=== PATIENT | male | born 1930 | race Caucasian/White ===

== ENCOUNTER 2016-08-06 22:21 | Emergency (ER) | payer MEDICARE, OTHER ==
[~2016-08-06 22:21] MED LIST: ALLO300T PO; ASPI-482 PO; DENO60DI SQ; DUTA0.5C PO; LEVO50TA PO
[2016-08-06 22:44] VITALS: BP 151/63
[2016-08-06 23:29] LABS: INFLUENZA A PATIENT NEGATIVE (NEGATIVE)
[2016-08-06 23:30] LABS: INFLUENZA B PATIENT NEGATIVE (NEGATIVE)
[2016-08-06] MEDS ORDERED: DOXY100T PO (23:42)
--- NOTE | 2016-08-06 23:43 | PHYS DOC ---
General Chief Complaint: SORE THROAT Stated Complaint: DRAINAGE,SORE THROAT,CONGESTION Time Seen by MD: 22:22 Source: patient Exam Limitations: no limitations Problems: History of Present Illness Initial Comments Pt is 86/M to ED c/o sinus problems. Pt states for the past days he's had frontal/maxillary pressure, yellow/green cough/nasal drainage, scratchy throat/hoarseness in morning. No sneeze/watery eyes, no fever/chills. Pt has h/o sinus surgery and sinusitis, thinks he has sinus infection. He is concerned it could progress to pneumonia. No cp/sob/n/v /d. Timing/Duration: 1 week Severity: moderate Modifying Factors: improves with other Associated Symptoms: cough, other Allergies: Coded Allergies: Penicillins (Verified Allergy, Unknown, 12/16/13) Past Medical History Medical History: other (hypothyroid, BPH) Surgical History: other (sinus) Family History Significant Family History: no pertinent family hx Social History Smoker: non-smoker Alcohol: none Drugs: none Review of Systems Constitutional: denies chills, denies diaphoresis, denies fever, denies malaise EENTM: denies ear discharge, denies nose pain, nose congestion throat pain denies throat swelling Respiratory: coughdenies shortness of breath, denies wheezing Cardiovascular: denies chest pain, denies palpitations, denies syncope Gastrointestinal: denies abdominal pain, denies nausea, denies vomiting Musculoskeletal: denies back pain, denies joint swelling, denies neck pain Psychiatric/Neurological: denies headache, denies numbness, denies paresthesia Physical Exam General Appearance: WD/WN, no apparent distress Eyes: bilateral eye EOMI, bilateral eye PERRL, bilateral eye normal inspection Ear, Nose, Throat: hearing grossly normal, other (green nasal/PND) Neck: non-tender, supple Respiratory: normal breath sounds, no respiratory distress Cardiovascular: normal peripheral pulses, regular rate, rhythm Gastrointestinal: non tender, soft Back: no CVA tenderness, no vertebral tenderness Extremities: non-tender, normal inspection Neurologic/Psychiatric: second officer II-XII nml as tested, alert, normal mood/affect, oriented x 3 Skin: normal color, warm/dry Departure Time of Disposition: 23:42 Disposition: 01 HOME, SELF-CARE Diagnosis: acute sinusitis Condition: GOOD Patient Instructions: Sinusitis, Child Additional Instructions: Drink plenty of fluids to avoid dehydration. OTC tylenol, ibuprofen, and analgesic throat sprays as needed. Rx: doxycycline Follow up with your doctor in 10-14 days. Return to ED with new or changing symptoms. RALF HICKS DO Aug 06, 2016 23:43
[2016-08-06] MEDS ORDERED: DOXYCYCLINE HYCLATE 100 MG TABLET ONE (23:45)
[2016-08-06] MEDS ORDERED: ONDANSETRON ODT 4 MG TAB.RAPDIS ONE (23:46)
[2016-08-06] MEDS: ONDANSETRON ODT 4 MG TAB.RAPDIS PO ONE (23:47)
[2016-08-06] MEDS: DOXYCYCLINE HYCLATE 100 MG TABLET PO ONE (23:47)
== END 2016-08-06 23:55 | disposition home or self-care (01) ==
LOC: ER 22:21
DX: J01.90 Acute sinusitis, unspecified (principal); E03.9 Hypothyroidism, unspecified; N40.0 Benign prostatic hyperplasia without lower urinary tract symptoms; Z88.0 Allergy status to penicillin
CPT/HCPCS: 87070; 87804; 87880; 99284; Q0162

== ENCOUNTER 2017-05-08 12:26 | Emergency (ER) | payer MEDICARE, OTHER ==
[~2017-05-08] VITALS: Ht 172.7 cm; Wt 71.7 kg
[~2017-05-08 12:26] MED LIST changes: +DOXY100T PO
--- NOTE | 2017-05-08 13:10 | PHYS DOC ---
Past History Past Medical History: Hypothyroid, Other Past Surgical History: Other Smoking: Non-smoker Alcohol Use: None Drug Use: None Adult General Chief Complaint Chief Complaint: MECHANICAL FALL HPI HPI 87-year-old male patient states he lost his balance and had a fall while walking outside and hit the left side of his back and posterior chest against a rock on the curb side. Patient denies other injuries and head injury and loss of consciousness. Patient rated his pain 5/10 in intensity as an aching pain without shortness of breath and focal neurodeficit. Review of Systems Review of Systems Constitutional: Denies fever or chills [] Eyes: Denies change in visual acuity, redness, or eye pain [] HENT: Denies nasal congestion or sore throat [] Respiratory: Denies cough or shortness of breath [] Cardiovascular: No additional information not addressed in HPI [] GI: Denies abdominal pain, nausea, vomiting, bloody stools or diarrhea [] : Denies dysuria or hematuria [] Musculoskeletal: Denies joint pain , reports thoracic pain[] Integument: Denies rash or skin lesions [] Neurologic: Denies headache, focal weakness or sensory changes [] Endocrine: Denies polyuria or polydipsia [] All other systems were reviewed and found to be within normal limits, except as documented in this note. Allergies Allergies Allergies Coded Allergies Type Severity Reaction Last Updated Verified Penicillins Allergy Unknown 12/16/13 Yes Physical Exam Physical Exam Constitutional: Well developed, well nourished, mild distress, non-toxic appearance. [] HENT: Normocephalic, atraumatic, bilateral external ears normal, oropharynx moist, no oral exudates, nose normal. [] Eyes: PERRLA, EOMI, conjunctiva normal, no discharge. [] Neck: Normal range of motion, no tenderness, supple, no stridor. [] Cardiovascular:Heart rate regular rhythm, no murmur [] Lungs & Thorax: Bilateral breath sounds clear to auscultation left lateral and posterior lower chest wall tenderness without crepitation or subcutaneous emphysema, no erythema or contusion[] Abdomen: Bowel sounds normal, soft, no tenderness, no masses, no pulsatile masses. [] Skin: Warm, dry, no erythema, no rash. [] Back: No tenderness, no CVA tenderness. [] Extremities: No tenderness, no cyanosis, no clubbing, ROM intact, no edema. [] Neurologic: Alert and oriented X 3, normal motor function, normal sensory function, no focal deficits noted. [] Psychologic: Affect normal, judgement normal, mood normal. [] EKG EKG [] Radiology/Procedures Radiology/Procedures [] Course & Med Decision Making Course & Med Decision Making Pertinent Imaging studies reviewed. (See chart for details) left knee pain and chest x-ray showed rib #10 and 11 nondisplaced fracture Evaluation of patient in ER showed 87-year-old male patient with accidental fall and injury chest wall injury. Patient had tenderness in left lower ribs area nondisplaced fracture of rib #10 uninhibiting x-ray. Patient did not have tenderness in any of rib #6 that was questionable for fracture in x-ray. Patient did not want to have pain medication in ER. Incentive spirometer was provided and patient informed to follow with his primary care physician and try to take deep breaths and cough. To give prescription of [place] to take half a pill as needed for pain. Dragon Disclaimer Dragon Disclaimer This electronic medical record was generated, in whole or in part, using a voice recognition dictation system. Departure Departure: Impression: Primary Impression: Left rib fracture Additional Impression: Fall Disposition: HOME, SELF-CARE (At 1411) Condition: STABLE Referrals: HAMMAD JAVIER (PCP) Patient Instructions: Rib Fracture Additional Instructions: Follow-up with your primary care physician in 3-5 days Return to ER if not getting better Scripts Hydrocodone Bit/Acetaminophen (NORCO 5-325 TABLET) 1 Each Tablet 0.5 TAB PO PRN Q6HRS Y for PAIN, #14 TAB 0 Refills Prov: LILIBETH US MD 05/08/17 Problem Qualifiers LILIBETH US MD May 08, 2017 13:10
--- NOTE | 2017-05-08 13:28 | RAD ---
INDICATION: fall COMPARISON: None. IMPRESSION: 3 views of chest and left ribs obtained. No definite focal airspace consolidation within the lungs. There are some probable calcified lymph nodes which could be from sequela of old granulomatous disease. There is questionable mild angulation of a couple of the left mid ribs laterally including the left sixth and seventh. Could be from overlap of structures but if there is pain in the region nondisplaced fractures are possible. In addition there is suspicion for multiple displaced acute appearing left lower rib fractures posteriorly including at least the left 10th and 11th ribs.
[2017-05-08] MEDS ORDERED: HYDR-971 PO (14:12)
[2017-05-08 14:25] VITALS: BP 146/73
== END 2017-05-08 14:35 | disposition home or self-care (01) ==
LOC: ER 12:26
DX: S22.32XA Fracture of one rib, left side, initial encounter for closed fracture (principal); M54.6 Pain in thoracic spine; E03.9 Hypothyroidism, unspecified; Z88.0 Allergy status to penicillin; W01.0XXA Fall on same level from slipping, tripping and stumbling without subsequent striking against object, initial encounter; Y93.01 Activity, walking, marching and hiking; Y99.8 Other external cause status; Y92.89 Other specified places as the place of occurrence of the external cause
CPT/HCPCS: 71101; 99284; G0238

== ENCOUNTER → 2017-10-16 | Outpatient (CLI) | payer MEDICARE, OTHER ==
[~2017-10-16] MED LIST changes: +HYDR-971 PO
== END | disposition home or self-care (01) ==
LOC: LAB 10:34
PROVIDERS: ATTEND Urology
DX: Z12.5 Encounter for screening for malignant neoplasm of prostate (principal); N40.2 Nodular prostate without lower urinary tract symptoms
CPT/HCPCS: G0103

== ENCOUNTER → 2018-04-19 | Outpatient (CLI) | payer MEDICARE, OTHER ==
[~2018-04-19] MED LIST changes: +HYDR-3165 PO; -HYDR-971 PO
== END | disposition home or self-care (01) ==
LOC: LAB 11:07
PROVIDERS: ATTEND Urology
DX: Z12.5 Encounter for screening for malignant neoplasm of prostate (principal); N40.1 Benign prostatic hyperplasia with lower urinary tract symptoms; R39.14 Feeling of incomplete bladder emptying
CPT/HCPCS: G0103

== ENCOUNTER 2018-07-12 22:03 | Inpatient (IN) | payer MEDICARE, OTHER ==
[~2018-07-12] VITALS: Ht 175.3 cm; Wt 70.8 kg
--- NOTE | 2018-07-12 22:15 | ED.ADGEN ---
Past History Past Medical History: Cancer, Hypothyroid, Other Past Surgical History: Other Smoking: Non-smoker Alcohol Use: None Drug Use: None Adult General Chief Complaint Chief Complaint ".. I developed some chest fullness... tonight... but I had just finished my dinner.. I had no chest pain. . maybe a little more short shortness of breath., , than usual.. I had this little bit .. dizzy like feeling...so I took my pulse with my two fingers.. here on Lt. side of my head.... that is the way I check my pulse.. over my temporal area... but it seems a little more fast than usual..... family then made me come in... . I am fine.. I am a lot better... nothing is bothering me. 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 Pt. denies chest pain. Pt. on arrival denied any symptoms. Pt. denies past cardiac or pulmonary problems. Does have a history of hypothyroidism and gout. Does have hx Prostate cancer that is monitored. Pt. is accompanied with his daughter. Pt. on minimal meds, but does take a baby aspirin. On arrival his monitor showed sinus tachycardia, mild elevation in blood pressure 153/80. Patient denies any travel or specific ill contacts. Patient denies any history immunosuppression. Patient normally follows with Dr. Cotto. Daughter at bedsides side states he appeared to be in normal mentation. Review of Systems Review of Systems Constitutional: Denies fever or chills [] Eyes: Denies change in visual acuity, redness, or eye pain [] HENT: Denies nasal congestion or sore throat [] Respiratory: Denies cough or shortness of breath [] Cardiovascular: No additional information not addressed in HPI []complaints of tachycardia- this occurs occasionally. GI: Denies abdominal pain, nausea, vomiting, bloody stools or diarrhea [] : Denies dysuria or hematuria [] Musculoskeletal: Denies back pain or joint pain [] Integument: Denies rash or skin lesions [] Neurologic: Denies headache, focal weakness or sensory changes []complaints of short episode of dizziness after completing his dinner tonight. Endocrine: Denies polyuria or polydipsia [] All other systems were reviewed and found to be within normal limits, except as documented in this note. Family History Family History Noncontributory Current Medications Current Medications See nursing for home meds Allergies Allergies Penicillins Physical Exam Physical Exam Constitutional: , no acute distress, non-toxic appearance. [] HENT: Normocephalic, atraumatic, bilateral external ears normal, has implants, oropharynx moist, no oral exudates, nose normal. [] Eyes: PERRLA, EOMI, conjunctiva normal, no discharge. [] Neck: Normal range of motion, no tenderness, supple, no stridor. JVD in reclined , sitting position Cardiovascular: Tachycardic Heart rate regular rhythm, no murmur [] Lungs & Thorax: Bilateral breath sounds equal apex with few scattered crackles on auscultation [] Abdomen: Bowel sounds normal, soft, no tenderness, no masses, no pulsatile masses. Old surgery scars Skin: Warm, dry, no erythema, no rash. Poor turgor, slightly pale. Back: No tenderness, no CVA tenderness. [] Scar. Extremities: No tenderness, no cyanosis, no clubbing, ROM intact, no edema. [] Some arthritic changes. No cording appreciated Neurologic: Alert and oriented X 3, very interactive, moves all extremities on request, no noted gross sensory or marked focal deficits noted. []Is very hard of hearing. Psychologic: Affect normal, judgement normal, mood normal. Very interactive- no apparent decline in his mental ability . EKG EKG My interpretation EKG shows a sinus tachycardia in 109 bpm. There is some ST and T-wave changes which appear to be strain pattern. No findings acute STEMI with contralateral changes. Has low voltage throughout.[] Radiology/Procedures Radiology/Procedures I interpretation of chest x-ray shows no cardiomegaly. There may be some patchy interstitial infiltrate, possible increased cephalization. No large consolidation.[] Course & Med Decision Making Course & Med Decision Making Pertinent Labs and Imaging studies reviewed. (See chart for details) Patient remained asymptomatic in the emergency department. Was found to have positive troponin 0.212 and elevated [id number]. Did have low Mg level I.6. Pt. asymptomatic will admit Dr. Escamilla, Cardiology consult. [] Final Impression Final Impression 1. Sinus tachycardia 2. CHF- elevated [id number] 3. Hypomagnesemia magnesium 1.6 4. Elevated Trop. 0.212 5. Elevated glucose- 144- (did just finish dinner- DM vs diet) 6. Hyponatremia- 133 7. History of hypothyroidism 8. History of gout 9. History of prostate cancer- Dragon Disclaimer Dragon Disclaimer This electronic medical record was generated, in whole or in part, using a voice recognition dictation system. Dragon Disclaimer This chart was dictated in whole or in part using Voice Recognition software in a busy, high-work load, and often noisy Emergency Department environment. It may contain unintended and wholly unrecognized errors or omissions. Discharge Summary Visit Information Final Diagnosis Problems Medical Problems: (1) Chest pain Status: Acute Brief Hospital Course Allergies Allergies Coded Allergies Type Severity Reaction Last Updated Verified Penicillins Allergy Intermediate 07/13/18 Yes Vital Signs Vital Signs Date Time Temp Pulse Resp B/P (MAP) Pulse Ox O2 Delivery O2 Flow Rate FiO2 07/13/18 22:16 72 14 98/66 (77) Room Air 07/13/18 21:12 96 07/13/18 20:14 97.3 Lab Results Laboratory Tests Test 07/12/18 22:15 07/13/18 03:55 07/13/18 04:00 07/13/18 04:05 White Blood Count 4.3 x10^3/uL (4.0-11.0) 4.3 x10^3/uL (4.0-11.0) Red Blood Count 4.11 x10^6/uL (4.30-5.70) 4.09 x10^6/uL (4.30-5.70) Hemoglobin 13.9 g/dL (13.0-17.5) 13.7 g/dL (13.0-17.5) Hematocrit 40.5 % (39.0-53.0) 40.3 % (39.0-53.0) Mean Corpuscular Volume 99 fL (79-100) 99 fL (79-100) Mean Corpuscular Hemoglobin 34 pg (25-35) 34 pg (25-35) Mean Corpuscular Hemoglobin Concent 34 g/dL (31-37) 34 g/dL (31-37) Red Cell Distribution Width 13.3 % (11.5-14.5) 13.3 % (11.5-14.5) Platelet Count 164 x10^3/uL (140-400) 154 x10^3/uL (140-400) Neutrophils (%) (Auto) 58 % (31-73) 72 % (31-73) Lymphocytes (%) (Auto) 25 % (24-48) 15 % (24-48) Monocytes (%) (Auto) 12 % (0-9) 10 % (0-9) Eosinophils (%) (Auto) 4 % (0-3) 2 % (0-3) Basophils (%) (Auto) 1 % (0-3) 1 % (0-3) Neutrophils # (Auto) 2.5 x10^3uL (1.8-7.7) 3.1 x10^3uL (1.8-7.7) Lymphocytes # (Auto) 1.1 x10^3/uL (1.0-4.8) 0.6 x10^3/uL (1.0-4.8) Monocytes # (Auto) 0.5 x10^3/uL (0.0-1.1) 0.4 x10^3/uL (0.0-1.1) Eosinophils # (Auto) 0.2 x10^3/uL (0.0-0.7) 0.1 x10^3/uL (0.0-0.7) Basophils # (Auto) 0.0 x10^3/uL (0.0-0.2) 0.0 x10^3/uL (0.0-0.2) Prothrombin Time 10.4 SEC (9.4-11.4) Prothromb Time International Ratio 1.0 (0.9-1.1) Activated Partial Thromboplast Time 32 SEC (23-33) D-Dimer ([place]) 0.24 mg/L (0.00-0.50) Sodium Level 133 mmol/L (136-145) 133 mmol/L (136-145) Potassium Level 3.9 mmol/L (3.5-5.1) 3.9 mmol/L (3.5-5.1) Chloride Level 96 mmol/L (98-107) 99 mmol/L (98-107) Carbon Dioxide Level 29 mmol/L (21-32) 29 mmol/L (21-32) Anion Gap 8 (6-14) 5 (6-14) Blood Urea Nitrogen 16 mg/dL (8-26) 19 mg/dL (8-26) Creatinine 0.9 mg/dL (0.7-1.3) 0.8 mg/dL (0.7-1.3) Estimated GFR (Cockcroft-Gault) 79.5 91.0 Glucose Level 144 mg/dL (70-99) 114 mg/dL (70-99) Calcium Level 9.3 mg/dL (8.5-10.1) 9.4 mg/dL (8.5-10.1) Magnesium Level 1.6 mg/dL (1.8-2.4) Total Bilirubin 0.4 mg/dL (0.2-1.0) Direct Bilirubin 0.1 mg/dL (0.0-0.2) Aspartate Amino Transf (AST/SGOT) 21 U/L (15-37) Alanine Aminotransferase (ALT/SGPT) 19 U/L (16-63) Alkaline Phosphatase 60 U/L (46-116) Creatine Kinase 162 U/L (39-308) Troponin I Quantitative 0.212 ng/mL (0-0.055) 0.242 ng/mL (0-0.055) AH-Qup-E-Type Natriuretic Peptide 1999 pg/mL (0-449) Total Protein 6.5 g/dL (6.4-8.2) Albumin 3.9 g/dL (3.4-5.0) Triglycerides Level 70 mg/dL (0-150) Cholesterol Level 190 mg/dL (0-200) LDL Cholesterol, Calculated 101 mg/dL (0-100) VLDL Cholesterol, Calculated 14 mg/dL (0-40) Non-HDL Cholesterol Calculated 115 mg/dL (0-129) HDL Cholesterol 75 mg/dL (40-60) Cholesterol/HDL Ratio 2.0 Lipase 94 U/L (73-393) Thyroid Stimulating Hormone (TSH) 8.640 uIU/mL (0.358-3.740) Nasal Screen MRSA (PCR) Negative (Negative) Urine Collection Type Unknown Urine Color Yellow Urine Clarity Clear Urine pH 6.0 Urine Specific [place] 1.015 Urine Protein Neg (NEG-TRACE) Urine Glucose (UA) Neg mg/dL (NEG) Urine Ketones (Stick) Neg mg/dL (NEG) Urine Blood Neg (NEG) Urine Nitrite Neg (NEG) Urine Bilirubin Neg (NEG) Urine Urobilinogen Dipstick 0.2 mg/dL (0.2 mg/dL) Urine Leukocyte Esterase Neg (NEG) Urine RBC 0 /HPF (0-2) Urine WBC Rare /HPF (0-4) Urine Squamous Epithelial Cells Occ /LPF Urine Bacteria 0 /HPF (0-FEW) Test 07/13/18 07:53 07/13/18 09:57 Glucose (Fingerstick) 96 mg/dL (70-99) Magnesium Level 1.9 mg/dL (1.8-2.4) Troponin I Quantitative 0.236 ng/mL (0-0.055) Brief Hospital Course Mr. Cristina is a 88 old male who presented with tachycardia, short dizzy spell and chf. + Trop. Admission to Dr. Escamilla and cardiology consult. Pt. asymptomatic while in ED. Discharge Information Condition at Discharge: Improved, Stable Dischare Medications Current Medications Aspirin (Children'S Aspirin) 324 mg 1X ONCE PO Last administered on 07/12/18at 22:42; Start 07/12/18 at 22:30; Stop 07/12/18 at 22:37; Status DC Sodium Chloride 1,000 ml @ 100 mls/hr Q10H IV Last administered on 07/12/18at 22:42; Start 07/12/18 at 22:30; Stop 07/13/18 at 08:29; Status DC Nitroglycerin (Nitro-Bid Oint) 1 inch 1X ONCE TP Last administered on at 22:43; Start 07/12/18 at 22:30; Stop 07/12/18 at 22:37; Status DC Aspirin (Children'S Aspirin) 81 mg STK-MED ONCE .ROUTE ; Start 07/12/18 at 22:38 ; Stop 07/12/18 at 22:39; Status DC Enoxaparin Sodium (Lovenox 80mg Syringe) 70 mg 1X ONCE SQ Last administered on 07/12/18at 23:22; Start 07/12/18 at 23:00; Stop 07/12/18 at 23:01; Status DC Magnesium Sulfate 50 ml @ 25 mls/hr 1X ONCE IV Last administered on 07/12/18at 23:20; Start 07/12/18 at 23:00; Stop 07/13/18 at 00:59; Status DC Furosemide (Lasix) 40 mg 1X ONCE IVP Last administered on 07/12/18at 23:20; Start 07/12/18 at 23:00; Stop 07/12/18 at 23:03; Status DC Ondansetron HCl (Zofran) 4 mg PRN Q4HRS PRN IV NAUSEA/VOMITING; Start 07/12/18 at 23:00; Stop 07/13/18 at 22:59 Morphine Sulfate (Morphine 4mg Syringe) 2 mg PRN Q2HR PRN IV PAIN; Start at 23:00; Stop 07/13/18 at 22:59 Aspirin (Children'S Aspirin) 81 mg DAILYWBKFT PO Last administered on at 10:59; Start 07/13/18 at 08:00 Nitroglycerin (Nitro-Bid Oint) 1 inch Q8HRS TP ; Start 07/13/18 at 06:00; Stop 07/13/18 at 11:17; Status DC Mirabegron (Myrbetriq) 25 mg DAILY PO Last administered on 07/13/18at 10:59; Start 07/13/18 at 10:00 Tamsulosin HCl (Flomax) 0.4 mg DAILY PO ; Start 07/13/18 at 10:00; Status Future Hold Allopurinol (Zyloprim) 300 mg DAILY PO Last administered on 07/13/18at 10:59; Start 07/13/18 at 10:00 Aspirin (Aspirin Enteric Coated) 81 mg DAILYWBKFT PO ; Start 07/13/18 at 10:00 Vitamin D (Vitamin D3) 3,000 unit DAILY PO Last administered on 07/13/18at 10:59 ; Start 07/13/18 at 10:00 Docusate Sodium (Colace) 100 mg BID PO Last administered on 07/13/18at 21:13; Start 07/13/18 at 10:00 Finasteride (Proscar) 5 mg DAILY PO ; Start 07/13/18 at 10:00; Status Future Hold Levothyroxine Sodium (Synthroid) 50 mcg DAILY06 PO Last administered on at 10:59; Start 07/13/18 at 10:00 Psyllium Hydrophilic Mucilloid (Metamucil) 1 pkt DAILY PO Last administered on 07/13/18 10:59; Start 07/13/18 at 10:00 Sodium Chloride 1,000 ml @ 100 mls/hr Q10H IV Last administered on 07/13/18 21:13; Start 07/13/18 at 10:45 Metoprolol Tartrate (Lopressor) 12.5 mg BID PO Last administered on 07/13/18 21:15; Start 07/13/18 at 21:00 Apixaban (Eliquis) 5 mg BID PO Last administered on 07/13/18 21:16; Start 04/21 at 21:00 Dronedarone (Multaq) 400 mg BIDWMEALS PO Last administered on 07/13/18 17:46; Start 07/13/18 at 17:00 Active Scripts Active Reported Vitamin D (Cholecalciferol (Vitamin D3)) 2,000 Unit Capsule 3,000 Unit PO DAILY Konsyl (Psyllium Husk) 6 Gm Packet 6 Gm PO DAILY Colace (Docusate Sodium) 100 Mg Capsule 1 Cap PO BID Myrbetriq (Mirabegron) 25 Mg Tab.er.24h 25 Mg PO DAILY Aspir-Low (Aspirin) 81 Mg Tablet.dr 1 Tab PO DAILY Finasteride 5 Mg Tablet 1 Tab PO DAILY Flomax (Tamsulosin Hcl) 0.4 Mg Cap.er.24h 1 Cap PO DAILY Allopurinol 300 Mg Tablet 1 Tab PO DAILY Synthroid (Levothyroxine Sodium) 50 Mcg Tablet 1 Tab PO DAILY SETH VERDUZCO MD Jul 12, 2018 22:15
[2018-07-12] MEDS ORDERED: IV NORMAL SALINE 1,000ML 1,000 ML IV SCH (22:30)
[2018-07-12] MEDS ORDERED: NITROGLYCERIN OINT 1 GM PACKET. TP ONE (22:30)
[2018-07-12] MEDS ORDERED: ASPIRIN 81 MG TAB.CHEW PO ONE (22:30)
--- NOTE | 2018-07-12 22:31 | EKG ---
[address] [address] Test Date: 2018-07-12 Test Time: 22:12:06 Pat Name: LUIZ LOMBARDO Department: Room: Gender: M Application Internship: : [id number] Requested By: SETH VERDUZCO Order Number: [id number] Reading MD: Musa Aviles MD Measurements Intervals [place] Rate: 109 P: 90 [place]: 158 QRS: 29 QRSD: 70 T: -13 QT: 376 QTc: 508 Interpretive Statements PROBABLE ATRIAL FLUTTER NON-SPECIFIC ST/T CHANGES Electronically Signed On 07-13-2018 11:23:45 CDT by Musa Aviles MD
[2018-07-12 22:37] LABS: BASO % 1 % (0-3); EOS # 0.2 x10^3/uL (0.0-0.7); EOS % 4 % (0-3); HEMATOCRIT 40.5 % (39.0-53.0); HEMOGLOBIN 13.9 g/dL (13.0-17.5); LYMPH # 1.1 x10^3/uL (1.0-4.8); LYMPH % 25 % (24-48); MEAN CORPUSCULAR HEMOGLOBIN 34 pg (25-35); MEAN CORPUSCULAR HGB CONC 34 g/dL (31-37); MEAN CORPUSCULAR VOLUME 99 fL (79-100); MONO # 0.5 x10^3/uL (0.0-1.1); MONO % 12 % (0-9); NEUT # 2.5 x10^3uL (1.8-7.7); NEUT % 58 % (31-73); PLATELET COUNT 164 x10^3/uL (140-400); RED BLOOD COUNT 4.11 x10^6/uL (4.30-5.70); RED CELL DISTRIBUTION WIDTH 13.3 % (11.5-14.5); WHITE BLOOD COUNT 4.3 x10^3/uL (4.0-11.0)
[2018-07-12] MEDS ORDERED: ASPIRIN 81 MG TAB.CHEW ONE (22:38)
[2018-07-12 22:50] LABS: ALBUMIN 3.9 g/dL (3.4-5.0); CALCIUM 9.3 mg/dL (8.5-10.1); CREATININE 0.9 mg/dL (0.7-1.3); DIRECT BILIRUBIN 0.1 mg/dL (0.0-0.2); GFR 79.5; MAGNESIUM 1.6 mg/dL (1.8-2.4); POTASSIUM 3.9 mmol/L (3.5-5.1); TOTAL BILIRUBIN 0.4 mg/dL (0.2-1.0); TOTAL PROTEIN 6.5 g/dL (6.4-8.2)
[2018-07-12] MEDS ORDERED: MAGNESIUM SULFATE 2GM 50 ML IV ONE (23:00)
[2018-07-12] MEDS ORDERED: MORPHINE SULFATE 4 MG/ML DISP.SYRIN. IV PRN (23:00)
[2018-07-12] MEDS ORDERED: ENOXAPARIN ** NOTE DOSE ** SYRINGE SQ ONE (23:00)
[2018-07-12] MEDS ORDERED: FUROSEMIDE 40 MG/4 ML VIAL IVP ONE (23:00)
[2018-07-12] MEDS ORDERED: ONDANSETRON PF 4 MG/2 ML VIAL. IV PRN (23:00)
[2018-07-13] VITALS (17 sets, daily range): BP systolic 82–131; BP diastolic 46–75
--- NOTE | 2018-07-13 00:51 | RAD ---
PROCEDURE: PORTABLE CHEST 1V CLINICAL INDICATION: Chest Pain COMPARISON: None FINDINGS: Heart is normal in size. Bilateral perihilar streaky opacities are seen. No focal consolidation. No pneumothorax or pleural effusion. Visualized bony thorax within normal limits. IMPRESSION: Differential diagnoses includes bronchitis or chronic interstitial changes. Electronically signed by: Cal Varela DO (07/13/2018 12:48 AM) [id number]
[2018-07-13 04:25] LABS: BASO % 1 % (0-3); EOS # 0.1 x10^3/uL (0.0-0.7); EOS % 2 % (0-3); HEMATOCRIT 40.3 % (39.0-53.0); HEMOGLOBIN 13.7 g/dL (13.0-17.5); LYMPH # 0.6 x10^3/uL (1.0-4.8); LYMPH % 15 % (24-48); MEAN CORPUSCULAR HEMOGLOBIN 34 pg (25-35); MEAN CORPUSCULAR HGB CONC 34 g/dL (31-37); MEAN CORPUSCULAR VOLUME 99 fL (79-100); MONO # 0.4 x10^3/uL (0.0-1.1); MONO % 10 % (0-9); NEUT # 3.1 x10^3uL (1.8-7.7); NEUT % 72 % (31-73); PLATELET COUNT 154 x10^3/uL (140-400); RED BLOOD COUNT 4.09 x10^6/uL (4.30-5.70); RED CELL DISTRIBUTION WIDTH 13.3 % (11.5-14.5); WHITE BLOOD COUNT 4.3 x10^3/uL (4.0-11.0)
[2018-07-13 04:29] LABS: BACTERIA,URINE 0 /HPF (0-FEW); BILIRUBIN,URINE NEG (NEG); CLARITY,URINE CLEAR; COLOR,URINE YELLOW; GLUCOSE,URINE NEG (NEG); NITRITE,URINE NEG (NEG); RBC,URINE 0 /HPF (0-2); SQUAMOUS EPITHELIAL CELL,UR OCC /LPF; UROBILINOGEN,URINE 0.2 mg/dL (0.2 mg/dL); WBC,URINE RARE /HPF (0-4)
[2018-07-13 04:32] LABS: CALCIUM 9.4 mg/dL (8.5-10.1); CREATININE 0.8 mg/dL (0.7-1.3); POTASSIUM 3.9 mmol/L (3.5-5.1)
[2018-07-13] MEDS ORDERED: LEVO50TA PO (05:31)
[2018-07-13] MEDS ORDERED: ASPI81TA50 PO (05:32)
[2018-07-13] MEDS ORDERED: FINA5TAB4 PO (05:32)
[2018-07-13] MEDS ORDERED: ALLO300T PO (05:32)
[2018-07-13] MEDS ORDERED: TAMS0.4C97 PO (05:32)
[2018-07-13] MEDS ORDERED: MIRA25TA PO (05:32)
[2018-07-13] MEDS ORDERED: DOCU-109 PO (05:39)
[2018-07-13] MEDS ORDERED: PSYL6PAC PO (05:39)
[2018-07-13] MEDS ORDERED: CHOL2000 PO (05:40)
[2018-07-13] MEDS ORDERED: NITROGLYCERIN OINT 1 GM PACKET. TP SCH (06:00)
[2018-07-13] MEDS: ASPIRIN 81 MG TAB.CHEW PO SCH ×2 (08:00→10:59)
--- NOTE | 2018-07-13 08:08 | HP ---
ADMIT DATE: 07/13/2018 HISTORY OF PRESENT ILLNESS: The patient is an 88-year-old male patient who came to the Emergency Room with a complaint of feeling dizzy and has had palpitation and all this happened when he has just finished his dinner. Denied any chest pain, denied any loss of consciousness or fall. The patient was brought to the Emergency Room where he was evaluated. PHYSICAL EXAMINATION: VITAL SIGNS: On arrival, his heart rate was slightly elevated at 110. NEUROLOGIC: He was extensively investigated and his first set of cardiac enzyme was slightly elevated at 0.12 and therefore was admitted to do 2 more sets of cardiac enzymes, to consult the cardiology team and to check his fasting lipid profile. PAST MEDICAL HISTORY: Significant for hypothyroidism, benign prostatic hypertrophy, and gout. PAST SURGICAL HISTORY: Significant for bilateral cataract extraction, tonsillectomy, appendectomy, back surgery and cochlear implant. FAMILY HISTORY: He has no brothers or sisters. His father at the age of 79 because of prostate cancer. Mother at the age of 95 because of congestive heart failure, CVA. SOCIAL HISTORY: He is , has 1 daughter. He never smoked. He used to drink wine with dinner. Has not had 1 for the last 6 years. 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 REVIEW OF SYSTEMS: The patient denies any blurring of vision. He has bilateral cataract extraction, but denies any glaucoma or macular degeneration. He has cochlear implant. Denied any nosebleeds, stuffy nose or postnasal drip. Denied any sore throat, sore tongue, toothache, hoarseness of voice or difficulty swallowing. Denied any nausea, vomiting, diarrhea or constipation. Denied any hematemesis, melena, hematochezia. Denied any dysuria, frequency or hematuria. Denied any chest pain, shortness of breath, orthopnea, or paroxysmal nocturnal dyspnea. Denied any cough, phlegm or hemoptysis. PHYSICAL EXAMINATION: GENERAL: When I saw him, he was resting slightly propped up in bed, in no apparent respiratory distress. Slightly pale, but not jaundiced, cyanosed or thyromegaly. No jugular venous distention. No limb edema. VITAL SIGNS: His heart rate on arrival to the Emergency Room was 110, blood pressure was 131/83, temperature was 97.9, respiratory rate was 24, and oxygen saturation was 99%. HEAD, EYES, EARS, NOSE AND THROAT: Showed normocephalic, atraumatic. NECK: Supple. HEART: Showed normal first and second heart sounds. No gallop, rub, or murmur. CHEST: Clear to auscultation. No crepitation or rhonchi. ABDOMEN: Scaphoid, soft, nontender. NEUROLOGICAL: He is awake, alert, responding appropriately. He is somewhat hard of hearing, but otherwise all cranial nerves are intact. He moves extremities without difficulty. He apparently ambulates without assistance or assistive devices. LABORATORY DATA: His lab work on arrival showed a white cell count of 4300, hemoglobin 14, hematocrit 41, MCV 99, and platelet count of 164,000 with normal manual differential. His prothrombin time was 10.4, INR of 1, aPTT was 32 and D-dimer was 0.24. His chemistry showed a serum sodium of 133, potassium 3.9, chloride 96, bicarbonate 29, anion gap of 8, BUN 16, creatinine 0.9, estimated GFR was 79 mL per minute, glucose 144, calcium was 9.3, magnesium was 1.6. Total bilirubin, AST, ALT, and alkaline phosphatase were normal. Total protein was 6.5, albumin was 3.9. His beta-natriuretic peptide was 2000. First set of cardiac enzyme showed troponin to be 0.212. His urinalysis was unremarkable. His chest x-ray showed that the heart is normal in size. He has bilateral perihilar streaky opacities seen. No focal consolidation, pneumothorax, pleural effusion visualized. Bony thorax within normal limits. ASSESSMENT AND PLAN: In summary, this is an 88-year-old male patient who came with what seemed to be syncope and palpitation. There is no loss of consciousness, no fall. No chest pain, no shortness of breath. The patient's first set of cardiac enzyme was slightly elevated at 0.212. We asked the Emergency Room to fax us the EKG but have not seen the actual EKG and that there was no comment by the ER physician about it. We will obviously consult the cardiology to check his fasting lipid profile and do 2 more sets of cardiac enzyme and decide on further management accordingly. We will also check his TSH. DIEGO AYON MD DR: GIA/marcelina JOB#: [id number] / [id number]
--- NOTE | 2018-07-13 09:40 | PDOC2 ---
LEEANNBECKI Marisa PRESS SERVICE READER 07/13/18 0940: CONSULT Date of Admission DATE: 07/13/18 TIME: 09:37 Reason for Consult: cp Problem List Problems Medical Problems: (1) Chest pain Status: Acute History of Present Illness Gen Cristina is an 88 year old male who presents to the ED with complaints of lightheadedness and with racing of his heart. He reports he was sitting after eating and had a momentary feeling of lightheadedness lasting only seconds. He then noticed his heart seemed to be racing. He was concerned so presented to the ED for evaluation. He denies any chest discomfort, dyspnea, presyncope or syncope. He denies congestive symptoms or fatigue. He reports remaining very active though he does not regularly exercise. He does have stairs in his home which he is able to walk up and down without issues or symptoms. heart. no chest discomfort, no dyspnea, no fatigue or change in functional capacity and he denies any prior episodes of above symptoms. Past Medical History gout, BPH s/p prostate biopsy x 3 (all neg), hypothyroid, cochlear implant, back surgery, appendectomy, carpal tunnel Past Surgical History as above Family History Father in his 70s with prostate cancer Mother in her 90s with CHF Social History non smoker, no illicit drugs, No ETOH. Retired . . Current Medications Current Medications Aspirin (Children'S Aspirin) 324 mg 1X ONCE PO Last administered on 07/12/18at 22:42; Start 07/12/18 at 22:30; Stop 07/12/18 at 22:37; Status DC Sodium Chloride 1,000 ml @ 100 mls/hr Q10H IV Last administered on 07/12/18at 22:42; Start 07/12/18 at 22:30; Stop 07/13/18 at 08:29; Status DC Nitroglycerin (Nitro-Bid Oint) 1 inch 1X ONCE TP Last administered on at 22:43; Start 07/12/18 at 22:30; Stop 07/12/18 at 22:37; Status DC Aspirin (Children'S Aspirin) 81 mg STK-MED ONCE .ROUTE ; Start 07/12/18 at 22:38 ; Stop 07/12/18 at 22:39; Status DC Enoxaparin Sodium (Lovenox 80mg Syringe) 70 mg 1X ONCE SQ Last administered on 07/12/18at 23:22; Start 07/12/18 at 23:00; Stop 07/12/18 at 23:01; Status DC Magnesium Sulfate 50 ml @ 25 mls/hr 1X ONCE IV Last administered on 07/12/18at 23:20; Start 07/12/18 at 23:00; Stop 07/13/18 at 00:59; Status DC Furosemide (Lasix) 40 mg 1X ONCE IVP Last administered on 07/12/18at 23:20; Start 07/12/18 at 23:00; Stop 07/12/18 at 23:03; Status DC Ondansetron HCl (Zofran) 4 mg PRN Q4HRS PRN IV NAUSEA/VOMITING; Start 07/12/18 at 23:00; Stop 07/13/18 at 22:59 Morphine Sulfate (Morphine 4mg Syringe) 2 mg PRN Q2HR PRN IV PAIN; Start at 23:00; Stop 07/13/18 at 22:59 Aspirin (Children'S Aspirin) 81 mg DAILYWBKFT PO ; Start 07/13/18 at 08:00 Nitroglycerin (Nitro-Bid Oint) 1 inch Q8HRS TP ; Start 07/13/18 at 06:00 Mirabegron (Myrbetriq) 25 mg DAILY PO ; Start 07/13/18 at 10:00 Tamsulosin HCl (Flomax) 0.4 mg DAILY PO ; Start 07/13/18 at 10:00 Allopurinol (Zyloprim) 300 mg DAILY PO ; Start 07/13/18 at 10:00 Aspirin (Aspirin Enteric Coated) 81 mg DAILYWBKFT PO ; Start 07/13/18 at 10:00 Vitamin D (Vitamin D3) 3,000 unit DAILY PO ; Start 07/13/18 at 10:00 Docusate Sodium (Colace) 100 mg BID PO ; Start 07/13/18 at 10:00 Finasteride (Proscar) 5 mg DAILY PO ; Start 07/13/18 at 10:00 Levothyroxine Sodium (Synthroid) 50 mcg DAILY06 PO ; Start 07/13/18 at 10:00 Psyllium Hydrophilic Mucilloid (Metamucil) 1 pkt DAILY PO ; Start 07/13/18 at 10 :00 Active Scripts Active Reported Vitamin D (Cholecalciferol (Vitamin D3)) 2,000 Unit Capsule 3,000 Unit PO DAILY Konsyl (Psyllium Husk) 6 Gm Packet 6 Gm PO DAILY Colace (Docusate Sodium) 100 Mg Capsule 1 Cap PO BID Myrbetriq (Mirabegron) 25 Mg Tab.er.24h 25 Mg PO DAILY Aspir-Low (Aspirin) 81 Mg Tablet.dr 1 Tab PO DAILY Finasteride 5 Mg Tablet 1 Tab PO DAILY Flomax (Tamsulosin Hcl) 0.4 Mg Cap.er.24h 1 Cap PO DAILY Allopurinol 300 Mg Tablet 1 Tab PO DAILY Synthroid (Levothyroxine Sodium) 50 Mcg Tablet 1 Tab PO DAILY Allergies: Coded Allergies: Penicillins (Verified Allergy, Intermediate, 07/13/18) Review of System as per HPI or negative General: Alert, Oriented X3, Cooperative, No acute distress HEENT: Atraumatic, EOMI, Mucous membr. moist/pink Lungs: Clear to auscultation, Normal air movement Heart: Other (irregular rate and rhythm, no obvious murmurs, no gallops, clicks or rubs) Abdomen: Normal bowel sounds, Soft Extremities: No cyanosis, No edema, Other (palpable distal pulses) Neuro: Normal speech, Strength at 5/5 X4 ext, Cranial nerves 3-12 NL Psych/Mental Status: Mental status NL, Mood NL VITALS Vital Signs Date Time Temp Pulse Resp B/P (MAP) Pulse Ox O2 Delivery O2 Flow Rate FiO2 07/13/18 06:01 Room Air 07/13/18 06:00 96/61 07/13/18 05:30 75 16 07/13/18 04:30 97 07/13/18 02:40 97.9 Labs Laboratory Tests Test 07/12/18 22:15 07/13/18 04:00 07/13/18 04:05 07/13/18 07:53 White Blood Count 4.3 x10^3/uL (4.0-11.0) 4.3 x10^3/uL (4.0-11.0) Red Blood Count 4.11 x10^6/uL (4.30-5.70) 4.09 x10^6/uL (4.30-5.70) Hemoglobin 13.9 g/dL (13.0-17.5) 13.7 g/dL (13.0-17.5) Hematocrit 40.5 % (39.0-53.0) 40.3 % (39.0-53.0) Mean Corpuscular Volume 99 fL (79-100) 99 fL (79-100) Mean Corpuscular Hemoglobin 34 pg (25-35) 34 pg (25-35) Mean Corpuscular Hemoglobin Concent 34 g/dL (31-37) 34 g/dL (31-37) Red Cell Distribution Width 13.3 % (11.5-14.5) 13.3 % (11.5-14.5) Platelet Count 164 x10^3/uL (140-400) 154 x10^3/uL (140-400) Neutrophils (%) (Auto) 58 % (31-73) 72 % (31-73) Lymphocytes (%) (Auto) 25 % (24-48) 15 % (24-48) Monocytes (%) (Auto) 12 % (0-9) 10 % (0-9) Eosinophils (%) (Auto) 4 % (0-3) 2 % (0-3) Basophils (%) (Auto) 1 % (0-3) 1 % (0-3) Neutrophils # (Auto) 2.5 x10^3uL (1.8-7.7) 3.1 x10^3uL (1.8-7.7) Lymphocytes # (Auto) 1.1 x10^3/uL (1.0-4.8) 0.6 x10^3/uL (1.0-4.8) Monocytes # (Auto) 0.5 x10^3/uL (0.0-1.1) 0.4 x10^3/uL (0.0-1.1) Eosinophils # (Auto) 0.2 x10^3/uL (0.0-0.7) 0.1 x10^3/uL (0.0-0.7) Basophils # (Auto) 0.0 x10^3/uL (0.0-0.2) 0.0 x10^3/uL (0.0-0.2) Prothrombin Time 10.4 SEC (9.4-11.4) Prothromb Time International Ratio 1.0 (0.9-1.1) Activated Partial Thromboplast Time 32 SEC (23-33) D-Dimer (Thania) 0.24 mg/L (0.00-0.50) Sodium Level 133 mmol/L (136-145) 133 mmol/L (136-145) Potassium Level 3.9 mmol/L (3.5-5.1) 3.9 mmol/L (3.5-5.1) Chloride Level 96 mmol/L (98-107) 99 mmol/L (98-107) Carbon Dioxide Level 29 mmol/L (21-32) 29 mmol/L (21-32) Anion Gap 8 (6-14) 5 (6-14) Blood Urea Nitrogen 16 mg/dL (8-26) 19 mg/dL (8-26) Creatinine 0.9 mg/dL (0.7-1.3) 0.8 mg/dL (0.7-1.3) Estimated GFR (Cockcroft-Gault) 79.5 91.0 Glucose Level 144 mg/dL (70-99) 114 mg/dL (70-99) Calcium Level 9.3 mg/dL (8.5-10.1) 9.4 mg/dL (8.5-10.1) Magnesium Level 1.6 mg/dL (1.8-2.4) Total Bilirubin 0.4 mg/dL (0.2-1.0) Direct Bilirubin 0.1 mg/dL (0.0-0.2) Aspartate Amino Transf (AST/SGOT) 21 U/L (15-37) Alanine Aminotransferase (ALT/SGPT) 19 U/L (16-63) Alkaline Phosphatase 60 U/L (46-116) Creatine Kinase 162 U/L (39-308) Troponin I Quantitative 0.212 ng/mL (0-0.055) 0.242 ng/mL (0-0.055) ZX-Fvp-H-Type Natriuretic Peptide 1999 pg/mL (0-449) Total Protein 6.5 g/dL (6.4-8.2) Albumin 3.9 g/dL (3.4-5.0) Lipase 94 U/L (73-393) Urine Collection Type Unknown Urine Color Yellow Urine Clarity Clear Urine pH 6.0 Urine Specific [place] 1.015 Urine Protein Neg (NEG-TRACE) Urine Glucose (UA) Neg mg/dL (NEG) Urine Ketones (Stick) Neg mg/dL (NEG) Urine Blood Neg (NEG) Urine Nitrite Neg (NEG) Urine Bilirubin Neg (NEG) Urine Urobilinogen Dipstick 0.2 mg/dL (0.2 mg/dL) Urine Leukocyte Esterase Neg (NEG) Urine RBC 0 /HPF (0-2) Urine WBC Rare /HPF (0-4) Urine Squamous Epithelial Cells Occ /LPF Urine Bacteria 0 /HPF (0-FEW) Glucose (Fingerstick) 96 mg/dL (70-99) Images EKG - sinus tachycardia, early R transition, minimal anterolateral st depression CXR - IMPRESSION: Differential diagnoses includes bronchitis or chronic interstitial changes. Assessment/Plan 1. NSTEMI - prob type 2 secondary to atrial flutter with RVR. 2. atrial flutter add low dose metoprolol, multaq and eliquis for stroke prevention. 3. hypotension - improving after discontinuing of nitrates Plan for medication additions as above, check lipids. check echo and plan for MPI in am. Outpatient MCT for Afib burden. MILY DAVENPORT MD 07/13/18 190: CONSULT Assessment/Plan Patient seen and examined. Agree with above nurse practitioner note. Pleasant 88-year-old gentleman who was admitted to the hospital with some palpitations and dizziness. Denies any angina or chest pain. He does have some dyspnea. After stabilization in the hospital he reports that he's feeling better. His examination is notable for an irregular heart rhythm. He has no rales or rhonchi. EKG is complex but overall is suggestive of atrial flutter with a 4-1 conduction likely. I had a long discussion with the patient and his family regarding treatment options. Given that he is adequately rate controlled we will initiate anticoagulation given his risk factor profile. We will obtain an echocardiogram and an myocardial perfusion study to rule out any occult ischemia as his troponin is mildly elevated which they suspect is mostly due to his tachycardia. If the above testing is unremarkable then we will continue to treat the patient with medical therapy and plan on discharge with an outpatient event monitor with close follow-up with the EP/general cardiology clinic per the patient's wishes. I did discuss with the patient the possibility of a cardioversion but given that he is currently asymptomatic and his age and other comorbidities would consider conservative therapy with medications at first. BECKI BRADSHAW APRN Jul 13, 2018 09:40 MILY DAVENPORT MD Jul 13, 2018 19:01
[2018-07-13] MEDS: ASPIRIN ENTERIC COATED 81 MG TABLET.DR. PO SCH (10:00)
[2018-07-13] MEDS ORDERED: TAMSULOSIN 0.4 MG CAP.ER.24H. PO SCH (10:00)
[2018-07-13] MEDS ORDERED: FINASTERIDE 5 MG TABLET PO SCH (10:00)
[2018-07-13] MEDS: IV NORMAL SALINE 1,000ML 1,000 ML IV SCH ×2 (10:57→21:13)
[2018-07-13] MEDS: DOCUSATE SODIUM 100 MG CAPSULE PO SCH ×2 (10:59→21:13)
[2018-07-13] MEDS: LEVOTHYROXINE 50 MCG TABLET PO SCH (10:59)
[2018-07-13] MEDS: ALLOPURINOL 300 MG TABLET. PO SCH (10:59)
[2018-07-13] MEDS: MIRABEGRON 25 MG TAB.ER.24H PO SCH (10:59)
[2018-07-13] MEDS: CHOLECALCIFEROL (VITAMIN D3) 1,000 UNIT TABLET PO SCH (10:59)
[2018-07-13] MEDS: PSYLLIUM SEED (WITH SUGAR) PACKET. PO SCH (10:59)
[2018-07-13 13:39] LABS: THYROID STIM HORMONE (TSH) 8.64 uIU/mL (0.358-3.740)
[2018-07-13] MEDS: DRONEDARONE HCL 400 MG TABLET PO SCH (17:46)
[2018-07-13] MEDS: METOPROLOL TART IMMED RELEASE 25 MG TABLET PO SCH (21:15)
[2018-07-13] MEDS: APIXABAN 5 MG TABLET. PO SCH (21:16)
[2018-07-14] VITALS (10 sets, daily range): BP systolic 82–128; BP diastolic 54–72
[2018-07-14] MEDS: LEVOTHYROXINE 50 MCG TABLET PO SCH (06:00)
--- NOTE | 2018-07-14 07:10 | CARD ---
MR#: [id number] Date of Study: 07/13/2018 Ordering Physician: BECKI BRADSHAW, Referring Physician: DIEGO AYON Tech: Gwendolyn Mckeon ARTI APPROVED REPORT EXAM: Two-dimensional and M-mode echocardiogram with Doppler and color Doppler. Other Information Quality : GoodHR: 93bpm Rhythm : Atrial FlutterTechnically limited study due to body habitus. INDICATION Non STEMI 2D DIMENSIONS Left Atrium(2D)4.3 (1.6-4.0cm)IVSd0.9 (0.7-1.1cm) LVDd4.4 (3.9-5.9cm)LVOT Diameter2.0 (1.8-2.4cm) PWd0.9 (0.7-1.1cm)LA Fyfxcm41 (18-58mL) LVDs2.8 (2.5-4.0cm)FS (%) 40.0 % SV64.0 mlLVEF(%)65.0 (>50%) M-Mode DIMENSIONS Aortic Cusp Exc1.60 (1.5-2.0cm) Aortic Valve AoV Peak Kit.14.0cm/sAoV VTI28.0cm AO Peak GR.8.0mmHgLVOT Peak Kit.103.0cm/s LVOT VTI 20.00cmAO Mean GR.4mmHg HALLIE (VTI)2.00cm2 Mitral Valve MV E Yboukfmy79.0cm/sMV DECEL [id number] MV A Oiwirkoo95.0cm/sE/A Ratio1.2 MV A [id number] TDI Lateral E' P. V12.00cm/sMedial E' P. V6.00cm/s E/Lateral E'6.9E/Medial E'13.8 Tricuspid Valve TR P. Pzwiljvy1ny/sRAP [id number] TR Peak Gr.[id number] LEFT VENTRICLE The left ventricle is normal size. There is normal left ventricular wall thickness. The left ventricu lar systolic function is normal and the ejection fraction is within normal range. EF 55% There is nor mal LV segmental wall motion. Tissue Doppler imaging reveals moderate left ventricular diastolic dysf unction. RIGHT VENTRICLE The right ventricle is mildly dilated. There is normal right ventricular wall thickness. The right ve ntricular systolic function is normal. ATRIA The left atrium is mildly dilated. The right atrium is mildly dilated. The interatrial septum is inta ct with no evidence for an atrial septal defect or patent foramen ovale as noted on 2-D or Doppler im aging. AORTIC VALVE The aortic valve is sclerotic but appears trileaflet. Doppler and Color Flow revealed trace aortic re gurgitation. There is no significant aortic valvular stenosis. There is no aortic valvular vegetation . MITRAL VALVE The mitral valve is calcified with mildly decreased leaflet mobility. There is no evidence of mitral valve prolapse. There is no mitral valve stenosis. Doppler and Color-flow revealed mild mitral regurg itation. TRICUSPID VALVE The tricuspid valve is normal in structure and function. Doppler and Color Flow revealed mild tricusp id regurgitation. RVSP 38 mm Hg. There is no tricuspid valve prolapse or vegetation. There is no tric uspid valve stenosis. PULMONIC VALVE Not well visualized. Doppler and Color Flow revealed mild pulmonic valvular regurgitation. There is n o pulmonic valvular stenosis. GREAT VESSELS The aortic root is normal in size. The IVC is normal in size and collapses >50% with inspiration. PERICARDIAL EFFUSION There is no pleural effusion. There is no evidence of significant pericardial effusion. Critical Notification Critical Value: No <Conclusion> The left ventricular systolic function is normal and the ejection fraction is within normal range. EF 55% There is normal LV segmental wall motion. Doppler and Color Flow revealed mild tricuspid regurgitation. RVSP 38 mm Hg. Signed by : Musa Aviles, Electronically Approved : 07/14/2018 07:10:07
[2018-07-14] MEDS: IV NORMAL SALINE 1,000ML 1,000 ML IV SCH (08:50)
[2018-07-14] MEDS ORDERED: REGADENOSON 0.4 MG/5 ML DISP.SYRIN. IV ONE ×2 (09:30→11:15)
--- NOTE | 2018-07-14 10:08 | PDOC ---
BECKI BRADSHAW COTTON DISPATCHER 07/14/18 1008: PROGRESS NOTES Diagnosis Problem Problems Medical Problems: (1) Chest pain Status: Acute Assessment Problems Medical Problems: (1) Chest pain Status: Acute 1. NSTEMI - prob type 2 secondary to atrial flutter with RVR. now sinus rhythm , no acute EKG changes. Normal LVEF and wall motion by echo. Continue aspirin and beta naty. MPI today. 2. atrial flutter add low dose metoprolol, multaq and eliquis for stroke prevention. Now sinus rhythm. Outpatient MCT to be placed today. 3. hypotension - remains mildly hypotensive but asymptomatic, compression hose. MPI today. If WNL, home with MCT and follow up with cardiology as per patient request. Subjective no complaints, "ready for stress test" no chest pain, no dyspnea, no lightheadedness Objective Vital Signs Date Time Temp Pulse Resp B/P (MAP) Pulse Ox O2 Delivery O2 Flow Rate FiO2 07/14/18 09:00 98.0 62 17 97/58 (71) 95 Room Air Intake and Output 07/14/18 06:59 Intake Total 3840 ml Output Total 1750 ml Balance 2090 ml Intake Oral 1040 ml IV Total 2800 ml Output Urine Total 1750 ml Abdomen: Normal bowel sounds, Soft Heart: Normal S1, Normal S2, Other (no obvious murmurs, no gallops, clicks or rubs) Extremities: No clubbing, No cyanosis, No edema, Normal pulses General: Alert, Oriented X3, Cooperative, No acute distress HEENT: Atraumatic, EOMI, Mucous membr. moist/pink Lungs: Clear to auscultation, Normal air movement Neck: No JVD Neuro: Normal speech, Strength at 5/5 X4 ext Psych/Mental Status: Mental status NL, Mood NL Review of Relevant I have reviewed the following items monico (where applicable) has been applied. Labs Laboratory Tests Test 07/12/18 22:15 07/13/18 03:55 07/13/18 04:00 07/13/18 04:05 White Blood Count 4.3 x10^3/uL (4.0-11.0) 4.3 x10^3/uL (4.0-11.0) Red Blood Count 4.11 x10^6/uL (4.30-5.70) 4.09 x10^6/uL (4.30-5.70) Hemoglobin 13.9 g/dL (13.0-17.5) 13.7 g/dL (13.0-17.5) Hematocrit 40.5 % (39.0-53.0) 40.3 % (39.0-53.0) Mean Corpuscular Volume 99 fL (79-100) 99 fL (79-100) Mean Corpuscular Hemoglobin 34 pg (25-35) 34 pg (25-35) Mean Corpuscular Hemoglobin Concent 34 g/dL (31-37) 34 g/dL (31-37) Red Cell Distribution Width 13.3 % (11.5-14.5) 13.3 % (11.5-14.5) Platelet Count 164 x10^3/uL (140-400) 154 x10^3/uL (140-400) Neutrophils (%) (Auto) 58 % (31-73) 72 % (31-73) Lymphocytes (%) (Auto) 25 % (24-48) 15 % (24-48) Monocytes (%) (Auto) 12 % (0-9) 10 % (0-9) Eosinophils (%) (Auto) 4 % (0-3) 2 % (0-3) Basophils (%) (Auto) 1 % (0-3) 1 % (0-3) Neutrophils # (Auto) 2.5 x10^3uL (1.8-7.7) 3.1 x10^3uL (1.8-7.7) Lymphocytes # (Auto) 1.1 x10^3/uL (1.0-4.8) 0.6 x10^3/uL (1.0-4.8) Monocytes # (Auto) 0.5 x10^3/uL (0.0-1.1) 0.4 x10^3/uL (0.0-1.1) Eosinophils # (Auto) 0.2 x10^3/uL (0.0-0.7) 0.1 x10^3/uL (0.0-0.7) Basophils # (Auto) 0.0 x10^3/uL (0.0-0.2) 0.0 x10^3/uL (0.0-0.2) Prothrombin Time 10.4 SEC (9.4-11.4) Prothromb Time International Ratio 1.0 (0.9-1.1) Activated Partial Thromboplast Time 32 SEC (23-33) D-Dimer (Thania) 0.24 mg/L (0.00-0.50) Sodium Level 133 mmol/L (136-145) 133 mmol/L (136-145) Potassium Level 3.9 mmol/L (3.5-5.1) 3.9 mmol/L (3.5-5.1) Chloride Level 96 mmol/L (98-107) 99 mmol/L (98-107) Carbon Dioxide Level 29 mmol/L (21-32) 29 mmol/L (21-32) Anion Gap 8 (6-14) 5 (6-14) Blood Urea Nitrogen 16 mg/dL (8-26) 19 mg/dL (8-26) Creatinine 0.9 mg/dL (0.7-1.3) 0.8 mg/dL (0.7-1.3) Estimated GFR (Cockcroft-Gault) 79.5 91.0 Glucose Level 144 mg/dL (70-99) 114 mg/dL (70-99) Calcium Level 9.3 mg/dL (8.5-10.1) 9.4 mg/dL (8.5-10.1) Magnesium Level 1.6 mg/dL (1.8-2.4) Total Bilirubin 0.4 mg/dL (0.2-1.0) Direct Bilirubin 0.1 mg/dL (0.0-0.2) Aspartate Amino Transf (AST/SGOT) 21 U/L (15-37) Alanine Aminotransferase (ALT/SGPT) 19 U/L (16-63) Alkaline Phosphatase 60 U/L (46-116) Creatine Kinase 162 U/L (39-308) Troponin I Quantitative 0.212 ng/mL (0-0.055) 0.242 ng/mL (0-0.055) DU-Wsw-C-Type Natriuretic Peptide 1999 pg/mL (0-449) Total Protein 6.5 g/dL (6.4-8.2) Albumin 3.9 g/dL (3.4-5.0) Triglycerides Level 70 mg/dL (0-150) Cholesterol Level 190 mg/dL (0-200) LDL Cholesterol, Calculated 101 mg/dL (0-100) VLDL Cholesterol, Calculated 14 mg/dL (0-40) Non-HDL Cholesterol Calculated 115 mg/dL (0-129) HDL Cholesterol 75 mg/dL (40-60) Cholesterol/HDL Ratio 2.0 Lipase 94 U/L (73-393) Thyroid Stimulating Hormone (TSH) 8.640 uIU/mL (0.358-3.740) Nasal Screen MRSA (PCR) Negative (Negative) Urine Collection Type Unknown Urine Color Yellow Urine Clarity Clear Urine pH 6.0 Urine Specific [place] 1.015 Urine Protein Neg (NEG-TRACE) Urine Glucose (UA) Neg mg/dL (NEG) Urine Ketones (Stick) Neg mg/dL (NEG) Urine Blood Neg (NEG) Urine Nitrite Neg (NEG) Urine Bilirubin Neg (NEG) Urine Urobilinogen Dipstick 0.2 mg/dL (0.2 mg/dL) Urine Leukocyte Esterase Neg (NEG) Urine RBC 0 /HPF (0-2) Urine WBC Rare /HPF (0-4) Urine Squamous Epithelial Cells Occ /LPF Urine Bacteria 0 /HPF (0-FEW) Test 07/13/18 07:53 07/13/18 09:57 Glucose (Fingerstick) 96 mg/dL (70-99) Magnesium Level 1.9 mg/dL (1.8-2.4) Troponin I Quantitative 0.236 ng/mL (0-0.055) Medications Current Medications Aspirin (Children'S Aspirin) 324 mg 1X ONCE PO Last administered on 07/12/18at 22:42; Start 07/12/18 at 22:30; Stop 07/12/18 at 22:37; Status DC Sodium Chloride 1,000 ml @ 100 mls/hr Q10H IV Last administered on 07/12/18at 22:42; Start 07/12/18 at 22:30; Stop 07/13/18 at 08:29; Status DC Nitroglycerin (Nitro-Bid Oint) 1 inch 1X ONCE TP Last administered on at 22:43; Start 07/12/18 at 22:30; Stop 07/12/18 at 22:37; Status DC Aspirin (Children'S Aspirin) 81 mg STK-MED ONCE .ROUTE ; Start 07/12/18 at 22:38 ; Stop 07/12/18 at 22:39; Status DC Enoxaparin Sodium (Lovenox 80mg Syringe) 70 mg 1X ONCE SQ Last administered on 07/12/18at 23:22; Start 07/12/18 at 23:00; Stop 07/12/18 at 23:01; Status DC Magnesium Sulfate 50 ml @ 25 mls/hr 1X ONCE IV Last administered on 07/12/18at 23:20; Start 07/12/18 at 23:00; Stop 07/13/18 at 00:59; Status DC Furosemide (Lasix) 40 mg 1X ONCE IVP Last administered on 07/12/18at 23:20; Start 07/12/18 at 23:00; Stop 07/12/18 at 23:03; Status DC Ondansetron HCl (Zofran) 4 mg PRN Q4HRS PRN IV NAUSEA/VOMITING; Start 07/12/18 at 23:00; Stop 07/13/18 at 22:59; Status DC Morphine Sulfate (Morphine 4mg Syringe) 2 mg PRN Q2HR PRN IV PAIN; Start at 23:00; Stop 07/13/18 at 22:59; Status DC Aspirin (Children'S Aspirin) 81 mg DAILYWBKFT PO Last administered on at 10:59; Start 07/13/18 at 08:00 Nitroglycerin (Nitro-Bid Oint) 1 inch Q8HRS TP ; Start 07/13/18 at 06:00; Stop 07/13/18 at 11:17; Status DC Mirabegron (Myrbetriq) 25 mg DAILY PO Last administered on 07/13/18at 10:59; Start 07/13/18 at 10:00 Tamsulosin HCl (Flomax) 0.4 mg DAILY PO ; Start 07/13/18 at 10:00; Status Future Hold Allopurinol (Zyloprim) 300 mg DAILY PO Last administered on 07/13/18at 10:59; Start 07/13/18 at 10:00 Aspirin (Aspirin Enteric Coated) 81 mg DAILYWBKFT PO ; Start 07/13/18 at 10:00 Vitamin D (Vitamin D3) 3,000 unit DAILY PO Last administered on 07/13/18at 10:59 ; Start 07/13/18 at 10:00 Docusate Sodium (Colace) 100 mg BID PO Last administered on 07/13/18at 21:13; Start 07/13/18 at 10:00 Finasteride (Proscar) 5 mg DAILY PO ; Start 07/13/18 at 10:00; Status Future Hold Levothyroxine Sodium (Synthroid) 50 mcg DAILY06 PO Last administered on at 10:59; Start 07/13/18 at 10:00 Psyllium Hydrophilic Mucilloid (Metamucil) 1 pkt DAILY PO Last administered on 07/13/18at 10:59; Start 07/13/18 at 10:00 Sodium Chloride 1,000 ml @ 100 mls/hr Q10H IV Last administered on 07/14/18at 08:50; Start 07/13/18 at 10:45 Metoprolol Tartrate (Lopressor) 12.5 mg BID PO Last administered on 07/13/18at 21:15; Start 07/13/18 at 21:00 Apixaban (Eliquis) 5 mg BID PO Last administered on 07/13/18at 21:16; Start 04/21 at 21:00 Dronedarone (Multaq) 400 mg BIDWMEALS PO Last administered on 07/13/18at 17:46; Start 07/13/18 at 17:00 Regadenoson (Lexiscan) 0.4 mg 1X ONCE IV ; Start 07/14/18 at 09:30; Stop at 09:31; Status DC Active Scripts Active Reported Vitamin D (Cholecalciferol (Vitamin D3)) 2,000 Unit Capsule 3,000 Unit PO DAILY Konsyl (Psyllium Husk) 6 Gm Packet 6 Gm PO DAILY Colace (Docusate Sodium) 100 Mg Capsule 1 Cap PO BID Myrbetriq (Mirabegron) 25 Mg Tab.er.24h 25 Mg PO DAILY Aspir-Low (Aspirin) 81 Mg Tablet.dr 1 Tab PO DAILY Finasteride 5 Mg Tablet 1 Tab PO DAILY Flomax (Tamsulosin Hcl) 0.4 Mg Cap.er.24h 1 Cap PO DAILY Allopurinol 300 Mg Tablet 1 Tab PO DAILY Synthroid (Levothyroxine Sodium) 50 Mcg Tablet 1 Tab PO DAILY Vitals/I & O Vital Sign - Last 24 Hours 3/1207/13/18 07/13/18 07/13/18 10:30 11:20 11:30 12:45 Temp 97.6 Pulse 80 72 Resp 19 19 B/P (MAP) 92/46 (61) 108/63 (78) Pulse Ox 93 93 O2 Delivery Room Air Room Air Room Air 07/13/18 07/13/18 07/13/18 07/13/18 13:30 14:38 15:49 16:10 Temp 98.3 Pulse 78 75 Resp 19 19 B/P (MAP) 88/53 (65) 96/50 (65) Pulse Ox 97 97 O2 Delivery Room Air Room Air Room Air 07/13/18 07/13/18 07/13/18 07/13/18 17:01 17:46 18:50 20:14 Temp 97.3 Pulse 87 87 86 104 Resp 14 14 22 B/P (MAP) 126/63 (84) 126/63 121/63 (82) 121/63 (82) Pulse Ox 97 97 96 O2 Delivery Room Air Room Air Room Air 07/13/18 07/13/18 07/13/18 07/13/18 21:12 21:15 22:16 23:15 Temp 97.8 Pulse 68 65 72 56 Resp 14 14 16 B/P (MAP) 99/59 (72) 103/64 98/66 (77) 96/64 (75) Pulse Ox 96 98 O2 Delivery Room Air Room Air Room Air 07/14/18 07/14/18 07/14/18 07/14/18 00:00 00:00 01:00 02:09 Pulse 64 56 62 Resp 14 15 B/P (MAP) 96/61 (73) 82/54 (63) 105/65 (78) O2 Delivery Room Air Room Air Room Air 07/14/18 07/14/18 07/14/18 07/14/18 03:02 04:00 04:24 05:25 Temp 97.8 Pulse 73 61 56 Resp 16 16 B/P (MAP) 91/58 (69) 98/61 (73) 89/64 (72) Pulse Ox 95 O2 Delivery Room Air Room Air 07/14/18 07/14/18 07/14/18 07/14/18 06:00 07:44 08:00 09:00 Temp 98.0 98.0 Pulse 60 62 Resp 14 17 B/P (MAP) 91/58 (69) 97/58 (71) Pulse Ox 95 O2 Delivery Room Air Room Air Intake and Output 07/13/18 07/13/18 07/14/18 14:59 22:59 06:59 Intake Total 1840 ml 1200 ml 800 ml Output Total 700 ml 500 ml 550 ml Balance 1140 ml 700 ml 250 ml MILY DAVENPORT MD 07/14/18 2813: PROGRESS NOTES Review of Relevant Patient seen and examined. Agree with above nurse practitioner note. Overnight he had a 6 second pause. He's currently in sinus rhythm and has been converted out of atrial flutter after 2 doses of Multaq. 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 He wishes ultimately to have intervention performed through . We will stop his antiarrhythmic and continue low-dose beta naty only. He has an event monitor on place and he will follow-up with [facility] with Dr. Ifrah Burgess for consideration of pacemaker/further mgmt of atrial flutter. notified of patient information. Thanks BECKI BRADSHAW APRN Jul 14, 2018 10:08 MILY DAVENPORT MD Jul 14, 2018 22:39
[2018-07-14] MEDS: ASPIRIN ENTERIC COATED 81 MG TABLET.DR. PO SCH (12:32)
[2018-07-14] MEDS: CHOLECALCIFEROL (VITAMIN D3) 1,000 UNIT TABLET PO SCH (12:32)
[2018-07-14] MEDS: DOCUSATE SODIUM 100 MG CAPSULE PO SCH (12:33)
[2018-07-14] MEDS: DRONEDARONE HCL 400 MG TABLET PO SCH (12:33)
[2018-07-14] MEDS: ALLOPURINOL 300 MG TABLET. PO SCH (12:34)
[2018-07-14] MEDS: METOPROLOL TART IMMED RELEASE 25 MG TABLET PO SCH (12:35)
[2018-07-14] MEDS: APIXABAN 5 MG TABLET. PO SCH (12:35)
[2018-07-14] MEDS: PSYLLIUM SEED (WITH SUGAR) PACKET. PO SCH (12:37)
[2018-07-14] MEDS: MIRABEGRON 25 MG TAB.ER.24H PO SCH (12:37)
--- NOTE | 2018-07-14 14:54 | RAD ---
MR#: [id number] Date of Study: 07/14/2018 Ordering Physician: BECKI BRADSHAW, Referring Physician: AARON FLORES Tech: RT Herve (R) (N) APPROVED REPORT Test Type: Pharmacological Stress Nurse/Tech: Eleuterio Cardiac History: No known cardiac Medications: See EHR Resting Heart Rate: 65 bpm Resting Blood Pressure: 116/60mmHg Pretest Chest Pain: None Pharm. Details Pharmacologic stress testing was performed using 0.4mg per 5ml of regadenoson given intravenously ove r 7-10 seconds. Stress Symptoms Dyspnea POST EXERCISE Reason for Termination: Infusion complete Max HR: 146 bpm Max Blood Pressure: 133/69mmHg Blood Pressure response to exercise: Normal blood pressure response during stress. Heart Rate response to exercise: Normal Chest Pain: No. Arrhythmia: No. ST Change: No. INTERPRETATION Stress EKG Conclusion: Baseline EKG showed sinus rhythm. No ischemic changes at peak stress. No arr hythmias. Imaging Protocol IMAGE PROTOCOL: Rest Tc-99m/stress Tc-99m 1 day Rest: Stress: Viability: Radiopharm.Tc99m RkkgyqhdjXo17c Sestamibi Fwdj47dTj 33mCi Duration 20min. 15min. Img Date 07/14/2018 07/14/2018 Inj-Img Vbix24dlg. 60min. Rest Admin Site:IV - Right AntecubitalAdministrator: RT Herve (R)(N) Stress Admin Site: IV - Right AntecubitalAdministrator: RT Herve (R)(N) STRESS DATA End Diast. Vol.105.0mlAv. Heart Rate68.0bpm LVEDV index BSA2.0mlCardiac Output0.1L/min End Syst. Vol.25.0mlCO Index BSA5.5L/min LVESV index BSA0.0mlMyocardial Usxa443.0g Eject. Abhrsbmk96.0% Stress Rates Pk. Fill Rate3.28EDV/secLVtime Pk. Fill 144.71msec Pk. Empty Rate3.39ESV/secLVtime Pk. Iltso396.41msec 1/3 Pk. Fill1.82EDV/sec Stress Scores Regional WT0.00Summed WT2.00 Regional WM0.00Summed WM1.00 Study quality was good. Left Ventricular size was Normal at Rest and Stress. Lung uptake was . Left Ventricular ejection fraction is 76%. The rest and stress images show normal perfusion, normal contraction and thickening. LV Perf. Quant 17 Seg. SSS4.00 17 Seg. SRS2.00 17 Seg. SDS2.00 Stress Defect Extent (% LAD)10.00Rest Defect Extent (% LAD)0.00Rev. Defect Extent (% LAD)7.50 Stress Defect Extent (% LCX) 10.00Rest Defect Extent (% LCX)15.00Rev. Defect Extent (% LCX)1.30 Stress Defect Extent (% RCA)0.00Rest Defect Extent (% RCA)0.00Rev. Defect Extent (% RCA)0.00 Stress Defect Extent (% JENIFER)9.80Rest Defect Extent (% JENIFER)6.10Rev. Defect Extent (% JENIFER)4.10 Conclusion 1. Regadenoson cardioisotope stress test did not show any evidence of ischemia or infarct. 2. Normal left ventricular systolic function with ejection fraction calculated at 76%. 3. Low risk for cardiac events. Signed by : Mark Martines, Electronically Approved : 07/14/2018 14:54:13
--- NOTE | 2018-07-14 17:25 | DS ---
DATE OF DISCHARGE: 07/13/2018 HOSPITAL COURSE: The patient is an 88-year-old male patient who came to the Emergency Room with a complaint of syncope and palpitation. His cardiac enzymes were slightly elevated and we did consult the cardiology team, and basically was diagnosed with type 2 non-ST segment elevation myocardial infarction secondary to atrial flutter with RVR. He converted to sinus rhythm. He is now on aspirin and beta naty. He was diagnosed also with atrial flutter for which he was started on metoprolol, Multaq and Eliquis for stroke prevention. He has had an echocardiogram, which basically showed that his left ventricular systolic function is normal and ejection fraction was within normal range at 55%, normal left ventricular segmental wall motion. Doppler and color flow revealed mild tricuspid regurgitation with right ventricular systolic pressure of 30 mmHg. He had a nuclear medicine scan, which basically showed that cardio-isotope stress test did not show any evidence of ischemia or infarct. Normal left ventricular systolic function, ejection fraction is calculated at 76% and he is considered a low risk for cardiac event. He will be discharged home on outpatient traffic monitor specialist. PHYSICAL EXAMINATION: GENERAL: When I saw him this afternoon, he looked well and was clearly in no apparent respiratory distress. No pallor, jaundice, cyanosis, or thyromegaly. No jugular venous distension. No limb edema. VITAL SIGNS: His heart rate was 71, blood pressure was 103/61, temperature was 98, respiratory rate was 18 and oxygen saturation was 95% on room air. HEAD, EYES, EARS, NOSE AND THROAT: Showed normocephalic, atraumatic. NECK: Supple. HEART: Showed normal first and second heart sounds. No gallop, rub or murmur. CHEST: Clear to auscultation. No crepitation or rhonchi. ABDOMEN: Distended, soft, nontender. No guarding or rigidity. No organomegaly. All hernial orifice intact. Bowel sounds normal. 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 He moves extremities without difficulty. He ambulates without assistance or assistive devices. LABORATORY DATA: Showed a serum sodium 133, potassium 3.9, chloride 99, bicarbonate 29, anion gap of 5, BUN 19, creatinine 0.8, estimated GFR was 91 mL per minute. His glucose 114, calcium was 9.4, magnesium was 1.9. He has 3 sets of cardiac enzyme, showed that troponin was slightly elevated at 0.214, 0.242, and 0.366. His white cell count was 4300, hemoglobin 13.7, hematocrit 40, MCV was 99 and platelet count of 154,000. His prothrombin time was 10.4, INR of 1, aPTT was 32. D-dimer was 0.24. His nasal screen for MRSA by PCR was negative. DISCHARGE MEDICATIONS: He will be discharged home to continue on following medications: Allopurinol 300 mg once a day, aspirin 81 mg once a day, cholecalciferol for vitamin D3 2000 international units once a day, docusate sodium for Colace 100 mg twice a day, finasteride 5 mg once a day, levothyroxine sodium 50 mcg once a day, Myrbetriq 25 mg once a day, Psyllium Husks 6 g packet 1 packet daily. He is also on tamsulosin for Flomax 0.4 mg once a day. He will be discharged also on apixaban 5 mg twice a day, Multaq 400 mg twice a day and metoprolol 12.5 mg twice a day. FINAL DISCHARGE DIAGNOSES: 1. Type 2 non-ST segment elevation myocardial infarction. 2. Atrial flutter. 3. Hypothyroidism. 4. Benign prostatic hypertrophy. 5. Gout. DIEGO AYON MD DR: GIA/marcelina JOB#: [id number] / [id number]
--- NOTE | 2018-07-17 12:30 | EKG ---
[address] [address] Test Date: 2018-07-13 Test Time: 10:46:08 Pat Name: LUIZ LOMBARDO Department: Room: [facility] 1 Gender: M [employer] Operator: : [id number] Requested By: DIEGO AYON Order Number: [id number] Reading MD: Musa Aviles MD Measurements Intervals [place] Rate: 82 P: 59 PA: 154 QRS: 42 QRSD: 70 T: -37 QT: 416 QTc: 489 Interpretive Statements PROBABLE AFLUTTER NON-SPECIFIC ST/T CHANGES Electronically Signed On 07-22-2018 9:26:54 CDT by Musa Aviles MD
== END 2018-07-14 17:00 | disposition home or self-care (01) | DRG 281 ==
LOC: ER 22:03 → MERGE 23:00 → ICU 23:00 → UNDOADMIN 07-13 00:01
PROVIDERS: ADMIT Internal Medicine; ATTEND Internal Medicine
DX: I21.A1 Myocardial infarction type 2 (principal); I48.92 Unspecified atrial flutter; E87.1 Hypo-osmolality and hyponatremia; E03.9 Hypothyroidism, unspecified; I48.91 Unspecified atrial fibrillation; M10.9 Gout, unspecified; I95.9 Hypotension, unspecified; N40.0 Benign prostatic hyperplasia without lower urinary tract symptoms; Z80.42 Family history of malignant neoplasm of prostate; Z82.3 Family history of stroke; Z82.49 Family history of ischemic heart disease and other diseases of the circulatory system; Z85.46 Personal history of malignant neoplasm of prostate; Z98.41 Cataract extraction status, right eye; Z98.42 Cataract extraction status, left eye; Z88.0 Allergy status to penicillin; E83.42 Hypomagnesemia; Z90.49 Acquired absence of other specified parts of digestive tract
CPT/HCPCS: 36415; 71045; 78452; 80048; 80061; 80076; 81001; 82550; 82947; 83690; 83735; 83880; 84443; 84484; 85025; 85379; 85610; 85730; 87641; 93005; 93017; 93306; 96361; 96365; 96366; 96372; 96374; 96375; 96376; A9500; J1650; J1940; J2785; J3475; 99285-25; J7030

== ENCOUNTER 2018-10-02 08:35 | Emergency (ER) | payer MEDICARE, OTHER ==
[~2018-10-02] VITALS: Ht 172.7 cm; Wt 72.6 kg
[2018-10-02 08:35] VITALS: BP 130/76
[~2018-10-02 08:35] MED LIST changes: +ASPI81TA50 PO; +CHOL2000 PO; +DOCU-109 PO; +FINA5TAB4 PO; +MIRA25TA PO; +PSYL6PAC PO; +TAMS0.4C97 PO
--- NOTE | 2018-10-02 09:02 | PHYS DOC ---
Past History Past Medical History: A-Fib, Hypothyroid, Other Past Surgical History: Pacemaker, Other Additional Past Surgical Histo: vein procedure Smoking: Non-smoker Alcohol Use: None Drug Use: None Adult General Chief Complaint Chief Complaint: LOWEREXTREMITY INJURY HPI HPI Patient is a 88-year-old male presents complaining of left leg bleeding. Patient has previous history of varicose veins been previously stripped approximately 5 years ago. Patient woke up this morning does not recall hitting her scratching himself against anything but noticed bleeding that he could not stop. Patient is on eliquis for atrial fibrillation. He also recently had a pacemaker placed. Patient denies any numbness or tingling. Denies any nausea or vomiting. Denies any chest pain or weakness.[] Review of Systems Review of Systems Constitutional: Denies fever or chills [] Eyes: Denies change in visual acuity, redness, or eye pain [] HENT: Denies nasal congestion or sore throat [] Respiratory: Denies cough or shortness of breath [] Cardiovascular: No chest pain or palpitations[] GI: Denies abdominal pain, nausea, vomiting, bloody stools or diarrhea [] : Denies dysuria or hematuria [] Musculoskeletal: Denies back pain or joint pain [] Integument: Denies rash or skin lesions on see history of present illness [] Neurologic: Denies headache, focal weakness or sensory changes [] Endocrine: Denies polyuria or polydipsia [] All other systems were reviewed and found to be within normal limits, except as documented in this note. Allergies Allergies Allergies Coded Allergies Type Severity Reaction Last Updated Verified Penicillins Allergy Unknown 12/16/13 Yes Physical Exam Physical Exam Constitutional: Well developed, well nourished, no acute distress, non-toxic appearance. [] HENT: Normocephalic, atraumatic, bilateral external ears normal, oropharynx moist, no oral exudates, nose normal. [] Eyes: PERRLA, EOMI, conjunctiva normal, no discharge. [] Neck: Normal range of motion, no tenderness, supple, no stridor. [] Cardiovascular:Heart rate regular rhythm, no murmur [] Lungs & Thorax: Bilateral breath sounds clear to auscultation left chest, Steri-Strips are falling off, incision appears clean and dry over the new pa cemaker site, [] Abdomen: Bowel sounds normal, soft, no tenderness, no masses, no pulsatile masses. [] Skin: Warm, dry, no erythema, no rash. Patient's lesion on the left anterior lower leg is 1 mm, no bleeding, distally neurovascularly intact [] Back: No tenderness, no CVA tenderness. [] Extremities: No tenderness, no cyanosis, no clubbing, ROM intact, no edema. [] Neurologic: Alert and oriented X 3, normal motor function, normal sensory function, no focal deficits noted. [] Psychologic: Affect normal, judgement normal, mood normal. [] EKG EKG [] Radiology/Procedures Radiology/Procedures [] Course & Med Decision Making Course & Med Decision Making Pertinent Labs and Imaging studies reviewed. (See chart for details) ED course: Patient arrived, was placed in bed, tolerated exam well. Given that there was no bleeding, the wound was dressed. Instructions to keep it clean and dry and covered that allows for healing. Patient voiced understanding. All questions were answered.[] Dragon Disclaimer Dragon Disclaimer This electronic medical record was generated, in whole or in part, using a voice recognition dictation system. Departure Departure: Impression: Primary Impression: Bleeding from varicose veins of left lower extremity Disposition: 01 HOME, SELF-CARE Condition: IMPROVED Referrals: HAMMAD JAVIER (PCP) Follow-up in 2 days Patient Instructions: Wound Care, [id number] Additional Instructions: The area clean and dry. Follow-up with your regular doctor in 2 days. Return to the ER if recurrence of bleeding or any other concerns. RAPHAEL PEDERSEN DO Oct 02, 2018 09:02
== END 2018-10-02 09:00 | disposition home or self-care (01) ==
LOC: ER 08:35
DX: I83.892 Varicose veins of left lower extremity with other complications (principal); I48.91 Unspecified atrial fibrillation; E03.9 Hypothyroidism, unspecified; Z95.0 Presence of cardiac pacemaker; Z88.0 Allergy status to penicillin
CPT/HCPCS: 99282